=== PATIENT | female | born 1985 ===

== ENCOUNTER 2018-07-24 10:09 | Emergency (ER) | payer MEDICAID ==
[2018-07-24 10:09] VITALS: BMI 25.8
[2018-07-24 10:16] VITALS: O2SAT 99
[2018-07-24] MEDS ORDERED: Oxycodone/Acetaminophen 5/325 mg Tab PO STA (10:48)
[2018-07-24] MEDS ORDERED: Oxycodone/Acetaminophen 5/325 mg Tab ONE (10:57)
[2018-07-24 11:20] LABS: BASO # 0.1 K/uL (0.0-0.2); BASO % 0.7 % (0.0-2.0); EOS # 0.1 K/uL (0.0-0.7); EOS % 0.7 % (0.0-4.0); HEMOGLOBIN 13.4 g/dL (12.0-16.0); LYMPH # 1.2 K/uL (1.0-4.3); LYMPH % 12.6 % (20.0-40.0); MEAN CELL VOLUME 80.4 fl (81.0-99.0); MEAN CORPUSCULAR HEMOGLOBIN 26.6 pg (27.0-31.0); MONO # 0.5 K/uL (0.0-0.8); MONO % 5.2 % (0.0-10.0); NEUT # 7.9 K/uL (1.8-7.0); NEUT % 80.8 % (50.0-75.0); RBC 5.03 Mil/uL (3.80-5.20); RED CELL DISTRIBUTION WIDTH 14.1 % (11.5-14.5); WHITE BLOOD COUNT 9.8 K/uL (4.8-10.8)
[2018-07-24 11:28] LABS: BLOOD UREA NITROGEN 10 mg/dl (7-17); CALCIUM 9.5 mg/dL (8.4-10.2); GFR NON-AFRICAN AMERICAN > 60
[2018-07-24] MEDS ORDERED: Ciprofloxacin 400mg/200ml D5W 400 MG/200 ML BAG IVPB STA (11:44)
[2018-07-24] MEDS ORDERED: Iohexol 300 100 ML IJ ONE (11:47)
[2018-07-24] MEDS ORDERED: Sodium Chloride 0.9% 50 ML IV ONE (11:47)
[2018-07-24] MEDS ORDERED: Ciprofloxacin 400mg/200ml D5W 400 MG/200 ML BAG IVPB ONE (12:03)
--- NOTE | 2018-07-24 12:21 | CT ---
Date of service: 07/24/2018 PROCEDURE: CT MAXILLOFACIAL BONES WITH CONTRAST HISTORY: Right OE/OM with post auricular tenderness COMPARISON: None. TECHNIQUE: Contiguous axial CT images of the maxillofacial bones were obtained following administration of IV contrast. Coronal and sagittal reformats were generated. Intravenous contrast Dose: Omnipaque 300, 95 cc Radiation dose: Total exam DLP = 750.02 mGy-cm. This CT exam was performed using one or more of the following dose reduction techniques: Automated exposure control, adjustment of the mA and/or kV according to patient size, and/or use of iterative reconstruction technique. FINDINGS: NASAL BONES: Unremarkable. ORBITS: Unremarkable. PARANASAL SINUSES/ MASTOIDS: Clear. MAXILLA: Unremarkable. MANDIBLE/ TEMPOROMANDIBULAR JOINTS: Unremarkable. SKULL BASE: Unremarkable. TEMPORAL BONES: The right external auditory canal is remarkable for enhancement and thickening of the midportion of the dermis and subcu dermal soft tissues related to the mid segment which also narrows the lumen somewhat. No abscesses related with the left external auditory canal unremarkable. There is no tightness media bilaterally with oral bones intrinsically unremarkable. No fracture or destructive bony lesion is appreciated throughout. OTHER FINDINGS: None. IMPRESSION: 1. Thickening of the dermis and subdermal soft tissues at the mid right external auditory canal is compatible the clinical history of otitis externa of infectious or possibly inflammatory etiology. Further clinical correlation is advised. There is narrowing of the mid segment of the right external auditory canal. No abscess or otitis media. Left temporal bone anatomy is unremarkable including middle ear cavity and left external auditory canal. 2. The remainder the examination appears unremarkable.
--- NOTE | 2018-07-24 13:05 | ED PDOC ---
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 Patient states that she went to her PMD who gave her a prescription, but when patient went to peanut picker from the pharmacy they stated they were out of the medication. Per patient, the pain was so severe that she had to come to the ED. Patient reports pain has spread from the ear and is now feeling like there is fluid and congestion in her right ear with associated pain behind her ear along her jaw and right side of neck. Patient denies fever, nausea, and vomiting. Past Medical History Reviewed: Historical Data, Nursing Documentation, Vital Signs Vital Signs: Last Vital Signs Temp 98.5 F 07/24/18 10:15 Pulse 70 07/24/18 10:15 Resp 18 07/24/18 10:15 BP 129/79 07/24/18 10:15 Pulse Ox 99 07/24/18 10:15 - Medical History PMH: Depression, Diabetes, HTN, Hypercholesterolemia Denies: Hepatitis, HIV, Chronic Kidney Disease, Seizures, Sexually Transmitted Disease - Surgical History Surgical History: Appendectomy, Cholecystectomy (23 yrs old), - Family History Family History: States: Unknown Family Hx - Immunization History Hx Tetanus Toxoid Vaccination: No Hx Influenza Vaccination: No Hx Pneumococcal Vaccination: No - Home Medications Home Medications: Ambulatory Orders Medication Instructions Recorded Amoxicillin/Clavulanate [Augmentin 1 tab PO TID #7 tab 07/24/18 500 MG-125 MG] Ciprofloxacin/Hydrocortisone 10 ml OT BID 7 Days drops.susp 07/24/18 [Cipro Hc Otic Suspension] - Allergies Allergies/Adverse Reactions: Allergies Allergy/AdvReac Type Severity Reaction Status Date / Time No Known Allergies Allergy Verified 12/08/15 15:21 Review of Systems ROS Statement: Except As Marked, All Systems Reviewed And Found Negative Constitutional: Negative for: Fever ENT: Positive for: Ear Pain Gastrointestinal: Negative for: Nausea, Vomiting Physical Exam - Reviewed Nursing Documentation Reviewed: Yes Vital Signs Reviewed: Yes - Physical Exam Appears: Positive for: Non-toxic, No Acute Distress Head Exam: Positive for: ATRAUMATIC, NORMOCEPHALIC Skin: Positive for: Normal Color, Warm, Dry Eye Exam: Positive for: EOMI, Normal appearance, PERRL ENT: Positive for: TM Is/Are (Right TM is difficult to observe due to swelling of external ear), Other (mild swelling preauricular; tenderness to palpation postauricular and along TMJ). Negative for: Normal ENT Inspection (right ear is inflamed; white chunky discharge) Neck: Positive for: Normal, Painless ROM Cardiovascular/Chest: Positive for: Regular Rate, Rhythm. Negative for: Murmur Respiratory: Positive for: Normal Breath Sounds. Negative for: Respiratory Distress Gastrointestinal/Abdominal: Positive for: Normal Exam, Soft. Negative for: Tenderness Back: Positive for: Normal Inspection Extremity: Positive for: Normal ROM. Negative for: Pedal Edema, Deformity Neurologic/Psych: Positive for: Alert, Oriented. Negative for: Motor/Sensory D eficits - Laboratory Results Result Diagrams: 07/24/18 11:00 07/24/18 11:00 - ECG O2 Sat by Pulse Oximetry: 99 (RA) Pulse Ox Interpretation: Normal Medical Decision Making Medical Decision Making: Time: 10:48 Impression: Otitis externa, workup for mastoiditis. Initial Plan: --CT Maxilofacial --BMP --CBC w/ diff --Cipro 400 mg --Percocet 2 tabs --Reassess Time: 13:15 CT FINDINGS: NASAL BONES: Unremarkable. ORBITS: Unremarkable. PARANASAL SINUSES/ MASTOIDS: Clear. MAXILLA: Unremarkable. MANDIBLE/ TEMPOROMANDIBULAR JOINTS: Unremarkable. SKULL BASE: Unremarkable. TEMPORAL BONES: The right external auditory canal is remarkable for enhancement and thickening of the midportion of the dermis and subcu dermal soft tissues related to the mid segment which also narrows the lumen somewhat. No abscesses related with the left external auditory canal unremarkable. There is no tightness media bilaterally with oral bones intrinsically unremarkable. No fracture or destructive bony lesion is appreciated throughout. OTHER FINDINGS: None. IMPRESSION: 1. Thickening of the dermis and subdermal soft tissues at the mid right external auditory canal is compatible the clinical history of otitis externa of infectious or possibly inflammatory etiology. Further clinical correlation is advised. There is narrowing of the mid segment of the right external auditory canal. No abscess or otitis media. Left temporal bone anatomy is unremarkable including middle ear cavity and left external auditory canal. 2. The remainder the examination appears unremarkable. 1300 Imaging shows no osteomyelitis. Pt given Rx for Topical and oral abx. Pt given referral ENT. Return parameters discussed with the patient via utility gelatin maker video. -- Scribe Attestation: Documented by Cleveland Gauthier, acting as a scribe for Sofie Chamberlain MD. Provider Scribe Attestation: All medical record entries made by the Scribe were at my direction and personally dictated by me. I have reviewed the chart and agree that the record accurately reflects my personal performance of the history, physical exam, medical decision making, and the department course for this patient. I have also personally directed, reviewed, and agree with the discharge Disposition - Clinical Impression Clinical Impression: Otitis externa - Disposition Referrals: Khoa Ortiz MD [Staff Provider] - Disposition: Routine/Home Disposition Time: 13:40 Condition: IMPROVED Additional Instructions: Take antibiotics as prescribed and use drops as prescribed. Follow up with ENT doctor as referred. Return to the emergency department if symptoms worsen or if new symptoms develop. Prescriptions: Amoxicillin/Clavulanate [Augmentin 500 MG-125 MG] 1 tab PO TID #7 tab Ciprofloxacin/Hydrocortisone [Cipro Hc Otic Suspension] 10 ml OT BID 7 Days drops.susp Forms: [employer] (Maldivian) Print Language: CITIZEN OF [place]
[2018-07-24 13:42] VITALS: BP 122/74; PULSE 76; RESP 15; TEMP 98.8
== END 2018-07-24 13:42 | disposition home or self-care (01) ==
LOC: H.ER 10:09
DX: H60.91 Unspecified otitis externa, right ear (principal); E11.9 Type 2 diabetes mellitus without complications; H91.90 Unspecified hearing loss, unspecified ear; I10 Essential (primary) hypertension; Z86.59 Personal history of other mental and behavioral disorders; Z79.899 Other long term (current) drug therapy
CPT/HCPCS: 70488; 80048; 81025; 85025; 96374; 99282; J0744; Q9967

== ENCOUNTER 2018-12-10 08:04 | Emergency (ER) | payer MEDICAID ==
[2018-12-10 08:10] VITALS: BMI 29.8
--- NOTE | 2018-12-10 08:57 | ED PDOC ---
HPI: Skin/Bite Injury Time Seen by Provider: 12/10/18 08:26 Chief Complaint (Nursing): Upper Extremity Problem/Injury Chief Complaint (Provider): skin rash History Per: Patient, Family (mother) History/Exam Limitations: no limitations Onset/Duration Of Symptoms: Days (x2) Current Symptoms Are (Timing): Still Present Additional Complaint(s): 33 year old female presents to the emergency department with mother at bedside, with complaints of pain, itching, and swelling to her left lower leg since arriving from [facility] 2 days ago. Additionally, she reports experiencing pain and swelling to her right elbow. Patient had 1 episode of vomiting yesterday but none today. She denies fever, chills, abdominal pain, or diarrhea. Of note, patient is deaf and mute but communicative. PCP: none provided Past Medical History Reviewed: Historical Data, Nursing Documentation, Vital Signs Vital Signs: Last Vital Signs Temp 97.8 F 12/10/18 08:10 Pulse 69 12/10/18 08:10 Resp 20 12/10/18 08:10 BP 119/77 12/10/18 08:10 Pulse Ox 99 12/10/18 08:10 - Medical History PMH: Depression, Diabetes, HTN, Hypercholesterolemia Denies: Hepatitis, HIV, Chronic Kidney Disease, Seizures, Sexually Transmitted Disease - Surgical History Surgical History: Appendectomy, Cholecystectomy (23 yrs old), - Family History Family History: States: Unknown Family Hx - Immunization History Hx Tetanus Toxoid Vaccination: No Hx Influenza Vaccination: No Hx Pneumococcal Vaccination: No - Home Medications Home Medications: Ambulatory Orders Medication Instructions Recorded Amoxicillin/Clavulanate [Augmentin 1 tab PO TID #7 tab 07/24/18 500 MG-125 MG] Ciprofloxacin/Hydrocortisone 10 ml OT BID 7 Days drops.susp 07/24/18 [Cipro Hc Otic Suspension] DiphenhydrAMINE [Benadryl] 25 mg PO Q6 PRN #15 cap 12/10/18 Doxycycline Hyclate 100 mg PO BID #14 capsule 12/10/18 Naproxen 500 mg PO BID #20 tab 12/10/18 - Allergies Allergies/Adverse Reactions: Allergies Allergy/AdvReac Type Severity Reaction Status Date / Time No Known Allergies Allergy Verified 12/08/15 15:21 Review of Systems ROS Statement: Except As Marked, All Systems Reviewed And Found Negative Constitutional: Negative for: Fever, Chills Gastrointestinal: Positive for: Vomiting (x1). Negative for: Abdominal Pain, Diarrhea Musculoskeletal: Positive for: Arm Pain (right elbow), Leg Pain (LLE with itching and swelling) Physical Exam - Reviewed Nursing Documentation Reviewed: Yes Vital Signs Reviewed: Yes - Physical Exam Appears: Positive for: Non-toxic, No Acute Distress Eye Exam: Positive for: Normal appearance Extremity: Positive for: Normal ROM (right elbow without joint diffusion), Tenderness (right elbow), Swelling (right elbow and LLE), Other (limited 10cm area of warmth and erythema to LLE) Neurologic/Psych: Positive for: Alert, Oriented - ECG O2 Sat by Pulse Oximetry: 99 (RA) Pulse Ox Interpretation: Normal Medical Decision Making Medical Decision Making: Initial Impression: cellulitis of left leg; olecranon bursitis Time: 925 --Upon provider evaluation, patient is medically stable and requires no further treatment in the ED at this time. Patient will be discharged home with Rx for Benadryl, Naproxen, and Doxycycline. Counseling was provided and all questions were answered regarding diagnosis. There is agreement to discharge plan. Return if symptoms persist or worsen. Clinical Impression: cellulitis; cellulitis of left lower leg; bursitis of right elbow Scribe Attestation: Documented by Jany Harris, acting as a scribe for Audrey Byrd MD. Provider Scribe Attestation: All medical record entries made by the Scribe were at my direction and personally dictated by me. I have reviewed the chart and agree that the record accurately reflects my personal performance of the history, physical exam, medical decision making, and the department course for this patient. I have also personally directed, reviewed, and agree with the discharge instructions and disposition. Disposition - Clinical Impression Clinical Impression: Cellulitis, Bursitis of right elbow, Cellulitis of left lower leg - Patient ED Disposition Is Patient to be Admitted: No Doctor Will See Patient In The: Office Counseled Patient/Family Regarding: Diagnosis, Need For Followup, Rx Given - Disposition Referrals: [facility] [Outside] Disposition: Routine/Home Disposition Time: 09:26 Condition: GOOD Additional Instructions: JITENDRA BANDA, thank you for letting us take care of you today. Your provider was Audrey Byrd MD and you were treated for RT ARM; LT LEG PAIN. The emergency medical care you received today was directed at your acute symptoms. If you were prescribed any medication, please fill it and take as directed. It may take several days for your symptoms to resolve. Return to the Emergency Department if your symptoms worsen, do not improve, or if you have any other problems. Please contact your doctor or call one of the physicians/clinics you have been referred to that are listed on the Patient Visit Information form that is included in your discharge packet. Bring any paperwork you were given at discharge with you along with any medications you are taking to your follow up visit. Our treatment cannot replace ongoing medical care by a primary care provider outside of the emergency department. Thank you for allowing the [facility] team to be part of your care today. If you had an X-Ray or CT scan: A Radiologist will review the ED reading if any change in treatment is needed we will contact you. If you had a blood, urine, or wound culture: It will take several days for the results, if any change in treatment is needed we will contact you. If you had an STI test: It will take 48 hours for the results. Please call after 1 week if you have not heard back. Prescriptions: DiphenhydrAMINE [Benadryl] 25 mg PO Q6 PRN #15 cap PRN Reason: Itching / Pruritus Doxycycline Hyclate 100 mg PO BID #14 capsule Naproxen 500 mg PO BID #20 tab Instructions: Cellulitis and Erysipelas (Skin Infections), Bursitis Print Language: THAI
[2018-12-10 09:42] VITALS: BP 120/7; PULSE 78; RESP 19; TEMP 97.7
[2018-12-10 11:06] VITALS: O2SAT 99
== END 2018-12-10 09:42 | disposition home or self-care (01) ==
LOC: H.ER 08:04
DX: L03.116 Cellulitis of left lower limb (principal); M70.21 Olecranon bursitis, right elbow; E11.9 Type 2 diabetes mellitus without complications; E78.00 Pure hypercholesterolemia, unspecified; F32.9 Major depressive disorder, single episode, unspecified; I10 Essential (primary) hypertension